=== PATIENT | female | born 1945 | race Caucasian/White ===

== ENCOUNTER → 2016-12-26 | Outpatient (CLI) | payer MEDICARE ==
[~2016-12-26] MED LIST: CORE6.25 PO; ECOT81TA5 PO; HYDR-3713 PO; IBUP-1022 PO; INSUHUMDS SC; MAGN400T5 PO; PANT40TA2 PO; POTA10CA PO; ROPI0.25 PO; SPIR25TA2 PO; TORS20TA2 PO; TOUJ1.2I SC; VITA2000 PO; ZYRT10TA2 PO
[2016-12-26 13:43] LABS: CALCIUM LEVEL 9.1 MG/DL (8.8-10.2); CREATININE FOR GFR 1.47 MG/DL (0.55-1.02); GLOMERULAR FILTRATION RATE 37.4 (>39); POTASSIUM SERUM 4.9 MEQ/L (3.5-5.1)
== END ==
LOC: M WUC 11:49
PROVIDERS: ATTEND Internal Medicine Cardiovascular Disease
DX: I10 Essential (primary) hypertension (principal)

== ENCOUNTER 2017-01-03 12:03 | Emergency (ER) | payer MEDICARE ==
[~2017-01-03] VITALS: Ht 170.2 cm; Wt 109.1 kg
[2017-01-03] MEDS ORDERED: ROPI0.25 PO (12:22)
[2017-01-03] MEDS ORDERED: MAGN400T5 PO (12:22)
[2017-01-03] MEDS ORDERED: TORS20TA2 PO (12:22)
[2017-01-03] MEDS ORDERED: HYDR-3713 PO (12:22)
[2017-01-03] MEDS ORDERED: POTA10CA PO (12:22)
[2017-01-03] MEDS ORDERED: CORE6.25 PO (12:22)
[2017-01-03] MEDS ORDERED: METAL LOCK LOOP XX ONE (12:22)
[2017-01-03] MEDS ORDERED: PANT40TA2 PO (12:22)
[2017-01-03] MEDS ORDERED: ECOT81TA5 PO (12:22)
[2017-01-03] MEDS ORDERED: VITA2000 PO (12:22)
[2017-01-03] MEDS ORDERED: ZYRT10TA2 PO (12:22)
[2017-01-03] MEDS ORDERED: SPIR25TA2 PO (12:22)
[2017-01-03] MEDS ORDERED: TOUJ1.2I SC (12:25)
[2017-01-03] MEDS ORDERED: INSUHUMDS SC (12:25)
[2017-01-03] MEDS ORDERED: NITROGLYCERIN 0.4 MG SUBL TABLET SL PRN (12:45)
[2017-01-03] MEDS ORDERED: hydrALAZINE INJ 20 MG/ML VIAL IV STA (13:00)
[2017-01-03 13:59] LABS: BASO % 0.8 % (0.0-1.0); EOS # 0.1 K/mm3 (0.0-0.50); EOS % 2.7 % (0.0-3.0); LARGE UNSTAINED CELL # 0.1 K/mm3 (0.0-0.4); LARGE UNSTAINED CELL % 1.9 % (0.0-4.0); MEAN CORPUSCULAR HGB CONC 34.3 g/dl (32.0-36.5); MEAN CORPUSCULAR VOLUME 87.4 fl (80.0-96.0); MONO # 0.3 K/mm3 (0.0-0.8); MONO % 5.5 % (0.0-5.0); NEUTROPHILS # 2.7 K/mm3 (1.8-7.7); NEUTROPHILS % 51.2 % (36.0-66.0); PLATELET COUNT, AUTOMATED 185 k/mm3 (150-450); RED CELL DISTRIBUTION WIDTH 13.5 % (11.5-14.5); WHITE BLOOD COUNT 5.2 K/mm3 (4.0-10.0)
[2017-01-03 14:06] LABS: INR 0.95
[2017-01-03 14:28] LABS: ALBUMIN 3.5 GM/DL (3.2-5.2); ALBUMIN/GLOBULIN RATIO 1.09 (1.00-1.93); ALKALINE PHOSPHATASE 97 U/L (45-117); ALT/SGPT 42 U/L (12-78); ANION GAP 7 MEQ/L (8-16); AST/SGOT 34 U/L (15-37); BILIRUBIN,DIRECT 0.1 MG/DL (0.0-0.2); BILIRUBIN,TOTAL 0.5 MG/DL (0.2-1.0); BLOOD UREA NITROGEN 23 MG/DL (7-18); CALCIUM LEVEL 9.3 MG/DL (8.8-10.2); CARBON DIOXIDE LEVEL 36 MEQ/L (21-32); CHLORIDE LEVEL 93 MEQ/L (98-107); GLOMERULAR FILTRATION RATE 47.3 (>39); GLUCOSE, FASTING 119 MG/DL (83-110); MAGNESIUM LEVEL 1.5 MG/DL (1.8-2.4); SODIUM LEVEL 136 MEQ/L (136-145); TOTAL PROTEIN 6.7 GM/DL (6.4-8.2)
[2017-01-03 14:33] LABS: FREE T4 0.93 NG/DL (0.76-1.46)
[2017-01-03 14:36] LABS: POTASSIUM SERUM 2.8 MEQ/L (3.5-5.1)
--- NOTE | 2017-01-03 14:51 | REP ---
REASON: Chest pain . PRIORS: None. COMPARISON: No priors. FINDINGS: The superior mediastinal structures are midline. The cardiac silhouette is unremarkable in size, shape, and position. The diaphragmatic surfaces of the lungs are regular, and the costophrenic angles are clear. The pulmonary yang are clear. The imaged osseous structures are intact. IMPRESSION: There is no acute cardiopulmonary disease. Signed by Leighton Landon DO 01/03/2017 04:42 P
[2017-01-03 14:52] LABS: ERYTHROCYTE SEDIMENTATION RATE 51 mm/hr (0-30)
[2017-01-03] MEDS ORDERED: ISOVUE-370 76% 100ML VIAL (Q9967) As Ordered ONE (15:15)
[2017-01-03] MEDS ORDERED: POTASSIUM CHLORIDE 10 MEQ SR TABLET PO ONE (15:15)
[2017-01-03] MEDS ORDERED: MAG SULF 1GM/100ML (MAG RUN) 1 GM in APPROPRIATE DILUENT 1 EA IV ONE (16:00)
[2017-01-03] MEDS ORDERED: IBUP-1022 PO (16:38)
[2017-01-03 16:58] VITALS: BP 162/84
--- NOTE | 2017-01-04 02:52 | ECGEPIP ---
Stationary ECG Study [facility] - ED Test Date: 2017-01-03 Pat Name: ROSA MARIA GE Department: Room: - Gender: F [employer] Tender: CARLOS : 1945 Requested By: DASHA HERNANDEZ Order Number: [id number] Reading MD: Blayne Montejo Measurements Intervals [place] Rate: 73 P: 40 FL: 138 QRS: 12 QRSD: 105 T: 11 QT: 344 QTc: 379 Interpretive Statements SINUS RHYTHM LOW QRS VOLTAGE IN PRECORDIAL LEADS PRIOR INFERIOR MYOCARDIAL INFARCTION NO PRIORS Electronically Signed On 01-04-2017 2:51:39 EDT by Blayne Montejo
--- NOTE | 2017-01-04 07:22 | REP ---
REASON: Chest pain. PRIORS: None. CONTRAST: 100 mL Isovue 370. There is good visualization of the pulmonary arterial vasculature. There are no focal filling defects present that would be considered consistent with pulmonary emboli. There are no pleural or pericardial effusions. There is no mediastinal or hilar adenopathy. The imaged upper abdomen is within normal limits. The imaged osseous structures are within normal limits. Evaluation of the lung yang show patchy asymmetric somewhat ground-glass appearing opacities consistent with subsegmental atelectatic changes. These could obscure a significant nodule. No significant pulmonary nodule is definitely identified. IMPRESSION: Essentially negative exam with findings a described above. Signed by Leighton Landon DO 01/04/2017 09:20 A
== END 2017-01-03 17:01 | disposition home or self-care (01) ==
LOC: M ED 12:03 → EDBD 12:03 → M ED 17:01
DX: I30.1 Infective pericarditis (principal); R07.89 Other chest pain; R53.83 Other fatigue; R06.02 Shortness of breath; I12.9 Hypertensive chronic kidney disease with stage 1 through stage 4 chronic kidney disease, or unspecified chronic kidney disease; E11.22 Type 2 diabetes mellitus with diabetic chronic kidney disease; G25.81 Restless legs syndrome; N18.9 Chronic kidney disease, unspecified; E78.9 Disorder of lipoprotein metabolism, unspecified; Z79.899 Other long term (current) drug therapy; Z79.82 Long term (current) use of aspirin; Z79.4 Long term (current) use of insulin; Z88.8 Allergy status to other drugs, medicaments and biological substances; Z88.2 Allergy status to sulfonamides
CPT/HCPCS: 36415; 71020; 71275; 80048; 80076; 82550; 82553; 83735; 83880; 84439; 84443; 84484; 85025; 85379; 85610; 85652; 86140; 93005; 93041; 94760; 99285; J3475; Q9967

== ENCOUNTER → 2017-12-07 | Outpatient (REF) | payer MEDICARE | LOC: M LAB REF 16:41 | DX: N39.0 Urinary tract infection, site not specified (principal) | CPT/HCPCS: 87186 ==

== ENCOUNTER → 2017-12-07 | Outpatient (CLI) | payer MEDICARE ==
[2017-12-07 12:13] LABS: BASO % 0.5 % (0.0-1.0); EOS # 0.2 10^3/uL (0.0-0.50); EOS % 2.3 % (0.0-3.0); HEMATOCRIT 39.1 % (36.0-47.0); HEMOGLOBIN 13.1 g/dl (12.0-15.5); IMMATURE GRANULOCYTE % 0.6 % (0-3.0); LYMPH # 1.7 10^3/uL (1.5-4.5); LYMPH % 19.7 % (24.0-44.0); MEAN CORPUSCULAR HEMOGLOBIN 30.3 pg (27.0-33.0); MEAN CORPUSCULAR HGB CONC 33.5 g/dl (32.0-36.5); MEAN CORPUSCULAR VOLUME 90.3 fl (80.0-96.0); MONO # 0.7 10^3/uL (0.0-0.8); MONO % 8.6 % (0.0-5.0); NEUTROPHILS # 5.9 10^3/uL (1.8-7.7); NEUTROPHILS % 68.3 % (36.0-66.0); PLATELET COUNT, AUTOMATED 185 10^3/uL (150-450); RED BLOOD COUNT 4.33 10^6/uL (4.00-5.40); RED CELL DISTRIBUTION WIDTH 13.2 % (11.5-14.5); WHITE BLOOD COUNT 8.6 10^3/uL (4.0-10.0)
[2017-12-07 12:26] LABS: ALBUMIN 3.7 GM/DL (3.2-5.2); ALBUMIN/GLOBULIN RATIO 1.06 (1.00-1.93); ALKALINE PHOSPHATASE 118 U/L (45-117); ALT/SGPT 29 U/L (12-78); ANION GAP 10 MEQ/L (8-16); AST/SGOT 17 U/L (7-37); BILIRUBIN,TOTAL 0.6 MG/DL (0.2-1.0); BLOOD UREA NITROGEN 38 MG/DL (7-18); CALCIUM LEVEL 9.4 MG/DL (8.8-10.2); CARBON DIOXIDE LEVEL 33 MEQ/L (21-32); CHLORIDE LEVEL 92 MEQ/L (98-107); CREATININE FOR GFR 1.78 MG/DL (0.55-1.30); GLOMERULAR FILTRATION RATE 29.9 (>39); GLUCOSE, FASTING 151 MG/DL (70-100); POTASSIUM SERUM 3.4 MEQ/L (3.5-5.1); SODIUM LEVEL 135 MEQ/L (136-145); TOTAL PROTEIN 7.2 GM/DL (6.4-8.2)
[2017-12-07 12:28] LABS: VITAMIN B12 LEVEL 486 PG/ML (247-911)
[2017-12-07 12:31] LABS: IRON (FE) 43 UG/DL (50-170)
[2017-12-07 12:31] LABS: FERRITIN 598 NG/ML (8-252)
== END ==
LOC: M WUC 09:39
DX: E11.65 Type 2 diabetes mellitus with hyperglycemia (principal); Z79.4 Long term (current) use of insulin; D64.9 Anemia, unspecified; E53.8 Deficiency of other specified B group vitamins; N39.0 Urinary tract infection, site not specified
CPT/HCPCS: 83540

== ENCOUNTER → 2018-01-12 | Outpatient (CLI) | payer MEDICARE ==
[2018-01-12 13:32] LABS: ALBUMIN 3.5 GM/DL (3.2-5.2); ALBUMIN/GLOBULIN RATIO 1.13 (1.00-1.93); ALKALINE PHOSPHATASE 90 U/L (45-117); ALT/SGPT 33 U/L (12-78); ANION GAP 8 MEQ/L (8-16); AST/SGOT 23 U/L (7-37); BILIRUBIN,TOTAL 0.4 MG/DL (0.2-1.0); BLOOD UREA NITROGEN 34 MG/DL (7-18); CALCIUM LEVEL 9.6 MG/DL (8.8-10.2); CARBON DIOXIDE LEVEL 33 MEQ/L (21-32); CHLORIDE LEVEL 100 MEQ/L (98-107); CREATININE FOR GFR 1.44 MG/DL (0.55-1.30); GLOMERULAR FILTRATION RATE 38.2 (>39); GLUCOSE, FASTING 90 MG/DL (70-100); POTASSIUM SERUM 3.2 MEQ/L (3.5-5.1); SODIUM LEVEL 141 MEQ/L (136-145); TOTAL PROTEIN 6.6 GM/DL (6.4-8.2)
== END ==
LOC: M WUC 08:57
DX: I25.118 Atherosclerotic heart disease of native coronary artery with other forms of angina pectoris (principal); E78.2 Mixed hyperlipidemia
CPT/HCPCS: 80053

== ENCOUNTER → 2018-10-27 | Outpatient (CLI) | payer MEDICARE ==
[~2018-10-27] MED LIST changes: +KLOR10TA76 PO; -PANT40TA2 PO; +PANT40TA3 PO; -POTA10CA PO; -ROPI0.25 PO; +ROPI0.253 PO; +SPIR-10 PO; -SPIR25TA2 PO; +ZYRT10CA5 PO; -ZYRT10TA2 PO
[2018-10-27 10:19] LABS: PERCENT SATURATION 34.7 % (13.2-45.0)
== END ==
LOC: M LAB 09:08
DX: D50.9 Iron deficiency anemia, unspecified (principal); D63.1 Anemia in chronic kidney disease; N18.3 Chronic kidney disease, stage 3 (moderate)

== ENCOUNTER → 2018-10-28 | Outpatient (CLI) | payer MEDICARE | LOC: M INFU 10:30 | PROVIDERS: ATTEND Internal Medicine Nephrology | DX: D50.9 Iron deficiency anemia, unspecified (principal); Z53.9 Procedure and treatment not carried out, unspecified reason ==

== ENCOUNTER → 2018-11-19 | Outpatient (CLI) | payer MEDICARE ==
[2018-11-19 13:29] LABS: BASO % 0.8 % (0.0-1.0); EOS # 0.2 10^3/uL (0.0-0.50); EOS % 4.2 % (0.0-3.0); HEMATOCRIT 39.1 % (36.0-47.0); HEMOGLOBIN 12.8 g/dl (12.0-15.5); LYMPH # 1.9 10^3/uL (1.5-4.5); MEAN CORPUSCULAR HEMOGLOBIN 31.5 pg (27.0-33.0); MEAN CORPUSCULAR HGB CONC 32.7 g/dl (32.0-36.5); MEAN CORPUSCULAR VOLUME 96.3 fl (80.0-96.0); MONO # 0.4 10^3/uL (0.0-0.8); MONO % 6.7 % (0.0-5.0); NEUTROPHILS # 2.7 10^3/uL (1.8-7.7); NEUTROPHILS % 52.1 % (36.0-66.0); PLATELET COUNT, AUTOMATED 163 10^3/uL (150-450); RED BLOOD COUNT 4.06 10^6/uL (4.00-5.40); WHITE BLOOD COUNT 5.3 10^3/uL (4.0-10.0)
[2018-11-19 14:11] LABS: CREATININE FOR GFR 1.35 MG/DL (0.55-1.30)
[2018-11-19 14:12] LABS: CALCIUM LEVEL 9.3 MG/DL (8.8-10.2); MAGNESIUM LEVEL 1.6 MG/DL (1.8-2.4); PERCENT SATURATION 32.7 % (13.2-45.0)
== END ==
LOC: M WUC 11:51
PROVIDERS: ATTEND Internal Medicine Nephrology
DX: N18.3 Chronic kidney disease, stage 3 (moderate) (principal); D63.1 Anemia in chronic kidney disease; D50.8 Other iron deficiency anemias; E83.42 Hypomagnesemia

== ENCOUNTER → 2020-01-20 | Outpatient (REF) | payer MEDICARE ==
[~2020-01-20] MED LIST changes: +PANT40TA29 PO; -PANT40TA3 PO
[2020-03-08 19:25] LABS: HEMOGLOBIN 12.5 g/dl (12.0-15.5); MEAN CORPUSCULAR HEMOGLOBIN 31.6 pg (27.0-33.0); MEAN CORPUSCULAR HGB CONC 32.1 g/dl (32.0-36.5); MEAN CORPUSCULAR VOLUME 98.5 fl (80.0-96.0); PLATELET COUNT, AUTOMATED 157 10^3/uL (150-450); RED BLOOD COUNT 3.96 10^6/uL (4.00-5.40)
[2020-03-08 19:28] LABS: BASO % 0.7 % (0.0-1.0); EOS # 0.5 10^3/uL (0.0-0.5); LYMPH # 1.9 10^3/uL (1.5-5.0); LYMPH % 31.6 % (24.0-44.0); MONO # 0.4 10^3/uL (0.0-0.8); MONO % 6.7 % (0.0-5.0); NEUTROPHILS # 3.2 10^3/uL (1.5-8.5); NEUTROPHILS % 52.8 % (36.0-66.0)
[2020-03-14 17:02] LABS: ALBUMIN 3.6 GM/DL (3.2-5.2); BILIRUBIN,TOTAL 0.5 MG/DL (0.2-1.0); C REACTIVE PROTEIN QUANTITATIV 1.57 MG/DL (0.00-0.30); CREATININE FOR GFR 1.11 MG/DL (0.55-1.30); GLOMERULAR FILTRATION RATE 51.3 (>39); POTASSIUM SERUM 3.5 MEQ/L (3.5-5.1); TOTAL PROTEIN 6.4 GM/DL (6.4-8.2)
== END ==
LOC: M WUC 16:01
DX: M15.3 Secondary multiple arthritis (principal)

== ENCOUNTER → 2020-01-20 | Outpatient (REF) | payer MEDICARE ==
[2020-03-08 19:24] LABS: APPEARANCE, URINE CLEAR (CLEAR); BACTERIA, URINE AUTO NEGATIVE (NEGATIVE); BILIRUBIN, URINE AUTO NEGATIVE (NEGATIVE); BLOOD, URINE BLOOD NEGATIVE (NEGATIVE); COLOR, URINE STRAW (YELLOW); GLUCOSE, URINE (UA) AUTO NEGATIVE (NEGATIVE); KETONE, URINE AUTO NEGATIVE (NEGATIVE); LEUKOCYTE ESTERASE, URINE AUTO NEGATIVE (NEGATIVE); NITRITE, URINE AUTO NEGATIVE (NEGATIVE); PROTEIN, URINE AUTO NEGATIVE (NEGATIVE); RBC, URINE AUTO 2 /HPF (0-3); SPECIFIC GRAVITY URINE AUTO 1.006 (1.002-1.035); SQUAMOUS EPITHELIAL CELL UR AU 0 /HPF (0-6); UROBILINOGEN, URINE AUTO 0.2 mg/dL (0.0-2.0); WBC, URINE AUTO 0 /HPF (0-3)
[2020-03-08 19:25] LABS: HEMATOCRIT 37.7 % (36.0-47.0); HEMOGLOBIN 12.1 g/dl (12.0-15.5); MEAN CORPUSCULAR HEMOGLOBIN 31.4 pg (27.0-33.0); MEAN CORPUSCULAR HGB CONC 32.1 g/dl (32.0-36.5); MEAN CORPUSCULAR VOLUME 97.9 fl (80.0-96.0); PLATELET COUNT, AUTOMATED 159 10^3/uL (150-450); RED BLOOD COUNT 3.85 10^6/uL (4.00-5.40); WHITE BLOOD COUNT 5.9 10^3/uL (4.0-10.0)
[2020-03-14 16:54] LABS: ALBUMIN 3.5 GM/DL (3.2-5.2); CALCIUM LEVEL 8.7 MG/DL (8.8-10.2); CREATININE FOR GFR 1.13 MG/DL (0.55-1.30); GLOMERULAR FILTRATION RATE 50.2 (>39); MAGNESIUM LEVEL 1.3 MG/DL (1.8-2.4); PHOSPHORUS LEVEL 3.3 MG/DL (2.5-4.9); POTASSIUM SERUM 3.5 MEQ/L (3.5-5.1); URIC ACID 4.6 MG/DL (2.6-6.0)
== END ==
LOC: M WUC 15:55
PROVIDERS: ATTEND Internal Medicine Nephrology
DX: E83.42 Hypomagnesemia (principal); I13.10 Hypertensive heart and chronic kidney disease without heart failure, with stage 1 through stage 4 chronic kidney disease, or unspecified chronic kidney disease; N18.3 Chronic kidney disease, stage 3 (moderate)

== ENCOUNTER → 2021-03-25 | Outpatient (CLI) | payer MEDICARE ==
[~2021-03-25] MED LIST changes: -KLOR10TA76 PO; +POTA-136 PO
--- NOTE | 2021-03-25 09:42 | REP ---
INDICATION: LOW BACK PAIN COMPARISON: None. TECHNIQUE: Views of the sacrum and coccyx FINDINGS: Age-related osteopenia and mild sclerotic changes along the sacroiliac joints noted. No evidence for obvious acute fracture. However, acute angulation through the distal sacrum on lateral radiograph may represent a nonacute injury and should be correlated with point of tenderness. IMPRESSION: Age-related changes.. Possible subacute/old injury to the distal sacrum identified on lateral radiograph. <Electronically signed by Nelson Watts > 03/25/21 [id number]
== END ==
LOC: M WUC 08:44
PROVIDERS: ATTEND Physician Assistant
DX: M54.50 Low back pain, unspecified (principal)

== ENCOUNTER → 2021-12-02 | Outpatient (CLI) | payer MEDICARE ==
[2021-12-02 16:44] LABS: BASO % 0.7 % (0.0-1.0); EOS # 0.2 10^3/uL (0.0-0.5); EOS % 3.5 % (0.0-3.0); HEMATOCRIT 41.7 % (36.0-47.0); HEMOGLOBIN 13.2 g/dl (12.0-15.5); LYMPH # 2.3 10^3/uL (1.5-5.0); LYMPH % 41.2 % (24.0-44.0); MEAN CORPUSCULAR HEMOGLOBIN 29.9 pg (27.0-33.0); MEAN CORPUSCULAR HGB CONC 31.7 g/dl (32.0-36.5); MEAN CORPUSCULAR VOLUME 94.6 fl (80.0-96.0); MONO # 0.4 10^3/uL (0.0-0.8); MONO % 7.7 % (2.0-8.0); NEUTROPHILS # 2.6 10^3/uL (1.5-8.5); NEUTROPHILS % 46.5 % (36.0-66.0); PLATELET COUNT, AUTOMATED 204 10^3/uL (150-450); RED BLOOD COUNT 4.41 10^6/uL (4.00-5.40); WHITE BLOOD COUNT 5.7 10^3/uL (4.0-10.0)
[2021-12-02 17:09] LABS: ALBUMIN 3.7 GM/DL (3.2-5.2); BILIRUBIN,TOTAL 0.3 MG/DL (0.2-1.0); CALCIUM LEVEL 9.4 MG/DL (8.8-10.2); CREATININE FOR GFR 1.43 MG/DL (0.55-1.30); GLOMERULAR FILTRATION RATE 38.1 (>39); PERCENT SATURATION 27.3 % (13.2-45.0); POTASSIUM SERUM 4.1 MEQ/L (3.5-5.1); TOTAL PROTEIN 6.4 GM/DL (6.4-8.2)
[2021-12-02 17:50] LABS: FOLATE 6.4 NG/ML
== END ==
LOC: M WUC 11:59
PROVIDERS: ATTEND Physician Assistant
DX: D51.9 Vitamin B12 deficiency anemia, unspecified (principal)

== ENCOUNTER 2025-01-26 17:52 | Emergency (ER) | payer MEDICARE ==
[~2025-01-26] VITALS: Ht 170.2 cm; Wt 90.0 kg
[~2025-01-26 17:52] MED LIST changes: +ATOR1TAB19; +BUME1TAB3; +CALC1CAP31; +CETI10CA2 PO; +CHOL125C5 PO; +ELIQ5TAB PO; +EXEN2AUT SC; +EZET10TA58 PO; +FAMO20TA5; +JARD1TAB; +MAGN400C PO; +METO1TAB32; +NOVOINJ3; -ROPI0.253 PO; +ROPI5TAB19 PO; +TRES1INJ
[2025-01-26 17:56] VITALS: TEMP 97
[2025-01-26 20:00] VITALS: O2SAT 96
[2025-01-26 20:01] VITALS: BP 143/82
== END 2025-01-26 20:10 | disposition home or self-care (01) ==
LOC: M ED 17:52
DX: S62.653A Nondisplaced fracture of middle phalanx of left middle finger, initial encounter for closed fracture (principal); S20.20XA Contusion of thorax, unspecified, initial encounter; Y92.9 Unspecified place or not applicable; Y93.9 Activity, unspecified; Y99.9 Unspecified external cause status; W01.0XXA Fall on same level from slipping, tripping and stumbling without subsequent striking against object, initial encounter; I25.119 Atherosclerotic heart disease of native coronary artery with unspecified angina pectoris; E11.9 Type 2 diabetes mellitus without complications; E78.5 Hyperlipidemia, unspecified; G47.33 Obstructive sleep apnea (adult) (pediatric); I12.9 Hypertensive chronic kidney disease with stage 1 through stage 4 chronic kidney disease, or unspecified chronic kidney disease; Z88.8 Allergy status to other drugs, medicaments and biological substances; Z79.01 Long term (current) use of anticoagulants; Z79.899 Other long term (current) drug therapy; Z79.4 Long term (current) use of insulin; Z79.1 Long term (current) use of non-steroidal anti-inflammatories (NSAID)

== ENCOUNTER → 2025-02-09 | Outpatient (CLI) | payer MEDICARE ==
[~2025-02-09] MED LIST changes: -IBUP-1022 PO; +IBUP600T42 PO
== END ==
LOC: M SOG 06:51
PROVIDERS: ATTEND Physician Assistant
DX: S62.623A Displaced fracture of middle phalanx of left middle finger, initial encounter for closed fracture (principal); Y93.9 Activity, unspecified; Y92.9 Unspecified place or not applicable

== ENCOUNTER → 2025-02-24 | Outpatient (CLI) | payer MEDICARE | LOC: M SOG 07:24 | PROVIDERS: ATTEND Physician Assistant | DX: S62.623A Displaced fracture of middle phalanx of left middle finger, initial encounter for closed fracture (principal); Y93.9 Activity, unspecified; Y92.9 Unspecified place or not applicable ==

== ENCOUNTER → 2025-03-31 | Outpatient (CLI) | payer MEDICARE | LOC: M SOG 07:39 | PROVIDERS: ATTEND Physician Assistant | DX: S62.623D Displaced fracture of middle phalanx of left middle finger, subsequent encounter for fracture with routine healing (principal) ==